=== PATIENT | female | born 1995 | race American Indian/Alaskan Native ===

== ENCOUNTER 2018-01-09 13:38 | Inpatient (IN) | payer MEDICAID ==
[2018-01-09] MEDS: LACTATED RINGERS 1,000 ML IV SCH ×2 (14:00→15:11)
[2018-01-09] MEDS ORDERED: LACTATED RINGERS 1,000 ML ONE (14:03)
[2018-01-09] MEDS ORDERED: SUBLIMAZE IV PRN (14:19)
--- NOTE | 2018-01-09 14:27 | History and Physical Report ---
History of Present Illness Date of examination: 01/09/18 Date of admission: 01/09/18 13:52 Chief complaint: contractions History of present illness: This is a 22 yo at 39+1 weeks came via ambulance and noted to be 7/100/-1 bulging bag. She states that she has care at [facility]. She is a walk in. Past History Past Medical History: asthma Past Surgical History: no surgical history Family/Genetic History: none Social history: no significant social history, single. denies: smoking, alcohol abuse, prescription drug abuse - Obstetrical History : 2 Para: 1 Hx # Term Pregnancies: 0 Number of Pregnancies: 0 Spontaneous Abortions: 0 Induced : 0 Number of Living Children: 1 Medications and Allergies Allergies Allergy/AdvReac Type Severity Reaction Status Date / Time No Known Allergies Allergy Unverified 01/09/18 13:45 Active Meds: Active Medications Fentanyl (Sublimaze) 100 mcg IV Q2H PRN PRN Reason: Labor Pain Oxytocin/Sodium Chloride (Pitocin/Ns 20 Unit/1000ml Drip) 20 units in 1,000 mls @ 250 mls/hr IV DIRECT TRINI Review of Systems All systems: negative Genitourinary: contractions - Vital Signs Vital signs: Vital Signs Pulse Pulse Ox 32 L 82 L 01/09/18 14:07 01/09/18 14:07 Temp Pulse Resp BP Pulse Ox 116 H 98 01/09/18 14:11 01/09/18 14:11 - Physical Exam Breasts: Positive: normal Cardiovascular: Regular rate, Normal S1 Lungs: Positive: Clear to auscultation, Normal air movement Abdomen: Positive: normal appearance, soft, normal bowel sounds. Negative: distention, tenderness, guarding Genitourinary (Female): Positive: normal external genitalia, normal perenium Vulva: both: normal Vagina: Positive: normal moisture Adnexa: both: normal Anus/Rectum: Positive: normal perianal skin Extremities: Positive: normal Deep Tendon Reflex Grade: Normal +2 - Obstetrical FHR: category 1 Uterine Contraction Monitor Mode: Palpation Cervical Dilatation: 7 Cervical Effacement Percentage: 100 station: -1 Uterine Contraction Pattern: Regular Uterine Tone Measurement Phase: Contraction Uterine Contraction Intensity: Strong/Firm Results All other labs normal. Assessment and Plan A/P IUP 39 + 1 weeks Term walk in No available will draw all labs GBS unknown will add ampiciliin IV pain meds until epidural can be given expect vaginal delivery
[2018-01-09 15:18] LABS: Hematocrit 33.1 % (30.3-42.9); Hemoglobin 10.7 gm/dl (10.1-14.3); Mean Corpuscular HGB Conc 32 % (30-34); Mean Corpuscular Hemoglobin 25 pg (28-32); Mean Corpuscular Volume 77 fl (79-97); Platelet Count 216 K/mm3 (140-440); Red Blood Count 4.28 M/mm3 (3.65-5.03); Red Cell Distribution Width 18.5 % (13.2-15.2)
[2018-01-09] MEDS ORDERED: ePHEDrine SULFATE ONE (15:44)
[2018-01-09 15:53] LABS: Rubella IgG Antibody Immune (Immune)
[2018-01-09] MEDS ORDERED: POLYCILLIN/NS 2 GM/100 ML 2 GM/100 ML BAG IV ONE (16:00)
[2018-01-09] MEDS ORDERED: NARCAN 2 MG/2 ML IV PRN (16:09)
[2018-01-09] MEDS ORDERED: ePHEDrine SULFATE IV PRN (16:09)
--- NOTE | 2018-01-09 16:11 | Anesthesia Consultation ---
Anesthesia Consult and Med Hx Date of service: 01/09/18 - Airway Anesthetic Teeth Evaluation: Good, Partials Mental/Hyoid Distance: Adequate Mallampati Class: Class II Intubation Access Assessment: Good - Pulmonary Exam CTA: Yes - Cardiac Exam Cardiac Exam: RRR - Pre-Operative Health Status ASA Pre-Surgery Classification: ASA2 Proposed Anesthetic Plan: Epidural - Pulmonary Hx Asthma: Yes COPD: No Hx Pneumonia: No - Endocrine Hx End Stage Renal Disease: No
[2018-01-09 16:22] LABS: Hepatitis C Virus Antibody Non-Reactive (NonReactive)
[2018-01-09 16:53] LABS: Amphetamine Screen,Urine PRESUMPTIVE NEGATIVE; Benzodiazepines Screen,Urine PRESUMPTIVE NEGATIVE; Cannabinoid Screen,Urine PRESUMPTIVE NEGATIVE; Cocaine Screen,Urine PRESUMPTIVE NEGATIVE; Methadone Screen,Urine PRESUMPTIVE NEGATIVE; Opiate Screen,Urine PRESUMPTIVE NEGATIVE
[2018-01-09] MEDS ORDERED: fentaNYL-BUPIV 2 MCG/ML-0.125% 200 MCG/100 ML BAG EPIDURAL SCH (17:00)
[2018-01-09] MEDS: PITOCin/NS 20 UNIT/1000ML DRIP 20 UNITS/1,000 ML BAG IV SCH ×2 (17:45→19:12)
[2018-01-09] MEDS ORDERED: LANSINOH TP PRN (18:02)
[2018-01-09] MEDS ORDERED: NORCO 5/325 PO PRN (18:02)
[2018-01-09] MEDS ORDERED: TYLENOL PO PRN (18:02)
[2018-01-09] MEDS ORDERED: ZOFRAN IV PRN (18:02)
[2018-01-09] MEDS ORDERED: PHENERGAN PR PRN (18:02)
[2018-01-09] MEDS ORDERED: PHENERGAN PO PRN (18:02)
[2018-01-09] MEDS ORDERED: TUCKS PAD TP PRN (18:02)
[2018-01-09] MEDS ORDERED: BENADRYL PO PRN (18:02)
[2018-01-09] MEDS ORDERED: TORADOL IV PRN (18:02)
--- NOTE | 2018-01-09 18:10 | Procedure Note ---
OB Delivery Note - Delivery Date of Delivery: 01/09/18 Surgeon: PAVEL LEBLANC Estimated blood loss: other (400cc) - Vaginal Delivery position: OA Intrapartum events: none Delivery induction: none Delivery augmentation: rupture of membranes Delivery monitor: external FHT, external uterine Route of delivery: Delivery placenta: spontaneous Delivery cord: 3 umbilical vessels Episiotomy: none Delivery laceration: 2nd degree Delivery repair: vicryl Anesthesia: epidural Delivery comments: Patient was noted to c/c+1 and commenced to pushing a viable male infant OA at 1742. The shoulders delivered easily. The nasopharynx and orophayrnx suctioned. Apgars noted to be 8 and 9. The weight of the male infant 7 pounds and 1 ounces. The cord was clamped and cut. The placenta delivered intact with 3 vessel cord. a 2nd degree laceration noted and repaired with 2-0 and 3-0 vicryl in normal fashion. sponge and needles correct x2. patient tolerated procedure well. - A at 1 minute: 8 at 5 minutes: 9 Infant Gender: Male
[2018-01-09] MEDS: MOTRIN PO SCH (19:00)
[2018-01-09] MEDS ORDERED: SODIUM CHLORIDE FLUSH SYRINGE 10 ML IV NR (19:00)
[2018-01-09] MEDS ORDERED: PITOCin/NS 20 UNIT/1000ML DRIP 20 UNITS/1,000 ML BAG IV SCH (19:00)
[2018-01-09 21:15] LABS: Hematocrit 31.8 % (30.3-42.9); Hemoglobin 9.9 gm/dl (10.1-14.3); Mean Corpuscular HGB Conc 31 % (30-34); Mean Corpuscular Volume 78 fl (79-97); Platelet Count 202 K/mm3 (140-440); Red Blood Count 4.08 M/mm3 (3.65-5.03)
[2018-01-09 21:16] LABS: Mean Corpuscular Hemoglobin 24 pg (28-32)
[2018-01-09] MEDS ORDERED: DULCOLAX PR PRN (22:00)
[2018-01-09] MEDS ORDERED: MILK OF MAGNESIA PO PRN (22:00)
[2018-01-09] MEDS: PERCOCET 5/325 PO PRN (23:00)
[2018-01-09] MEDS: COLACE PO SCH (23:00)
[2018-01-10] MEDS ORDERED: M-M-R II VACCINE SUB-Q ONE (06:00)
[2018-01-10 06:06] LABS: Hematocrit 27.7 % (30.3-42.9); Hemoglobin 8.6 gm/dl (10.1-14.3)
[2018-01-10] MEDS: MOTRIN PO SCH ×3 (06:13→22:34)
[2018-01-10] MEDS ORDERED: BOOSTRIX IM ONE (08:00)
--- NOTE | 2018-01-10 09:19 | Progress Note ---
Assessment and Plan A/P PPD#1 s/p doing well vss anemia -iron initated continue routine PP orders rh + no rhogam indicated D/c home tomorrow Subjective - Subjective Date of service: 01/10/18 Principal diagnosis: s/p Interval history: This is a 22 yo at 39+1 weeks came via ambulance and noted to be 7/100/-1 bulging bag. She states that she has care at [facility]. She is a walk in. Patient reports: appetite normal, voiding normally, pain well controlled, flatus , ambulating normally : doing well, nursing well Objective - Vital Signs Latest vital signs: Vital Signs Temp Pulse Resp BP BP Pulse Ox 01/10/18 04:48 98.5 F 87 20 110/50 01/10/18 00:04 99 F 103 H 18 120/54 01/09/18 21:15 98.4 F 79 18 117/63 01/09/18 19:23 92 H 100 01/09/18 19:18 92 H 100 01/09/18 19:17 91 H 135/60 01/09/18 19:13 84 100 01/09/18 19:08 84 100 01/09/18 19:03 100 H 168/68 100 01/09/18 19:00 98.1 F 16 01/09/18 18:58 82 100 01/09/18 18:53 87 100 01/09/18 18:48 109 H 125/69 99 01/09/18 18:34 97 H 100 01/09/18 18:29 88 99 01/09/18 18:27 82 115/67 01/09/18 18:24 100 H 100 01/09/18 18:19 131 H 100 01/09/18 18:00 98.9 F 16 01/09/18 17:57 118 H 138/60 01/09/18 17:43 103 H 138/65 01/09/18 17:34 101 H 92 01/09/18 17:29 84 83 L 01/09/18 17:28 98 H 116/58 89 01/09/18 17:24 87 100 01/09/18 17:19 90 100 01/09/18 17:14 97 H 100 01/09/18 17:13 92 H 117/60 01/09/18 17:09 100 H 100 01/09/18 17:04 107 H 114/54 100 01/09/18 16:52 113 H 100 01/09/18 16:47 112 H 100 01/09/18 16:45 118 H 121/57 01/09/18 16:42 117 H 100 01/09/18 16:37 118 H 100 01/09/18 16:32 103 H 100 01/09/18 16:27 100 H 96/58 100 01/09/18 16:25 114 H 89/54 01/09/18 16:23 96 H 103/56 01/09/18 16:22 110 H 100 01/09/18 16:21 109 H 100/52 01/09/18 16:19 106 H 118/57 01/09/18 16:17 110 H 117/59 100 01/09/18 16:16 98.0 F 16 01/09/18 16:15 110 H 109/51 01/09/18 16:13 111 H 97/56 01/09/18 16:12 114 H 100 01/09/18 16:11 117 H 106/55 01/09/18 16:09 110 H 101/53 01/09/18 16:07 105 H 107/54 100 01/09/18 16:05 109 H 115/53 01/09/18 16:03 112 H 116/70 01/09/18 16:02 109 H 100 01/09/18 16:01 108 H 106/59 01/09/18 15:59 111 H 111/59 01/09/18 15:57 111 H 97 01/09/18 15:55 98 H 164/65 01/09/18 15:53 72 140/66 01/09/18 15:52 95 01/09/18 15:44 100 H 123/81 01/09/18 14:49 95 H 89 01/09/18 14:47 96 H 99 01/09/18 14:42 98 H 94 01/09/18 14:38 99.2 F 18 01/09/18 14:37 83 100 01/09/18 14:11 116 H 98 01/09/18 14:07 32 L 82 L Intake and Output 01/09/18 01/10/18 01/10/18 23:59 07:59 15:59 Intake Total 702.5 240 Output Total 1050 1350 Balance -347.5 -1110 Intake: IV 462.5 PITOCin/NS 20 UNIT/1000ML 362.5 DRIP 20 units In 1,000 ml @ 250 mls/hr IV DIRECT TRINI Rx#:[id number] POLYCILLIN/NS 2 GM/100 ML 100 2 gm In 100 ml @ 100 mls /hr IV ONCE ONE Rx#: [id number] Intake, Free Water 240 240 Output: Urine 1050 1350 Indwelling Catheter 450 Void 600 1350 Other: Total, Output Amount 600 650 # Voids Void 1 Estimated Blood Loss 400 - Exam Breasts: Present: deferred Cardiovascular: Present: Regular rate, Normal S1 Lungs: Present: Clear to auscultation, Normal air movement Abdomen: Present: normal appearance, soft, normal bowel sounds. Absent: distention, tenderness, guarding Vulva: both: normal Uterus: Present: normal, firm, fundal height below umbilicus. Absent: bogginess , tenderness Extremities: Present: normal Deep Tendon Reflex Grade: Normal +2 - Labs Labs: Abnormal lab results 01/09/18 01/09/18 01/10/18 Range/Units 14:57 20:38 05:45 WBC 11.1 H 19.0 H (4.5-11.0) K/mm3 Hgb 9.9 L 8.6 L (10.1-14.3) gm/dl Hct 27.7 L (30.3-42.9) % MCV 77 L 78 L (79-97) fl MCH 25 L 24 L (28-32) pg RDW 18.5 H 19.0 H (13.2-15.2) %
--- NOTE | 2018-01-10 09:24 | Discharge Summary ---
Providers - Providers Date of Admission: 01/09/18 13:52 Date of discharge: 01/11/18 Attending physician: PAVEL LEBLANC MD Primary care physician: PAVEL LEBLANC MD Hospitalization Reason for admission: active labor Delivery: Episiotomy: none Laceration: 2nd degree Incision: normal, dry, intact Other procedures: none complications: none Discharge diagnosis: IUP at term delivered baby: male Condition at discharge: Good Disposition: DC-01 TO HOME OR SELFCARE Plan - Discharge Medications Prescriptions: Docusate Sodium [Colace] 100 mg PO BID PRN #60 capsule PRN Reason: Constipation Ferrous Sulfate 325 mg PO BID #60 tablet. Ibuprofen [Motrin] 600 mg PO Q8H PRN #30 tablet PRN Reason: Pain - Provider Discharge Summary Activity: routine, no sex for 6 weeks, no strenuous exercise Diet: routine Instructions: routine Additional instructions: [] Smoking cessation referral if applicable(refer to patient education folder for contact #) [] Refer to [facility]'s [facility] Booklet Call your doctor immediately for: * Fever > 100.5 * Heavy vaginal bleeding ( >1 pad per hour) * Severe persistent headache * Shortness of breath * Reddened, hot, painful area to leg or breast * Drainage or odor from incision. * Keep incision clean and dry at all times and follow doctor's instructions regarding bathing/showering - Follow up plan Follow up: PAVEL LEBLANC MD [Primary Care Provider] - 02/05/18
[2018-01-10] MEDS: PRENATAL VITAMIN PO SCH (12:18)
[2018-01-10] MEDS: COLACE PO SCH ×2 (12:18→22:34)
[2018-01-10] MEDS: PERCOCET 5/325 PO PRN (12:22)
[2018-01-11] MEDS: MOTRIN PO SCH ×2 (02:59→05:50)
[2018-01-11] MEDS: PRENATAL VITAMIN PO SCH (08:36)
[2018-01-11] MEDS: COLACE PO SCH (08:37)
[2018-01-11 18:43] VITALS: BP 113/63
== END 2018-01-11 19:38 | disposition home or self-care (01) | DRG 775 ==
LOC: TRG 13:38 → EDBD 13:52 → LD 13:52 → OB 20:58
PROVIDERS: ADMIT Obstetrics & Gynecology; ATTEND Obstetrics & Gynecology
PROC: 0KQM0ZZ Repair Perineum Muscle, Open Approach (ICD-10-PCS; principal; 2018-01-09)
PROC: 10E0XZZ Delivery of Products of Conception, External Approach (ICD-10-PCS; 2018-01-09)
PROC: 3E0R3BZ Introduction of Anesthetic Agent into Spinal Canal, Percutaneous Approach (ICD-10-PCS; 2018-01-09)
PROC: 00HU33Z Insertion of Infusion Device into Spinal Canal, Percutaneous Approach (ICD-10-PCS; 2018-01-09)
PROC: 3E0234Z Introduction of Serum, Toxoid and Vaccine into Muscle, Percutaneous Approach (ICD-10-PCS; 2018-01-10)
DX: O99.52 Diseases of the respiratory system complicating childbirth (principal); O70.1 Second degree perineal laceration during delivery; Z3A.39 39 weeks gestation of pregnancy; Z37.0 Single live birth; J45.909 Unspecified asthma, uncomplicated; O90.81 Anemia of the puerperium; D64.9 Anemia, unspecified; Z23 Encounter for immunization
CPT/HCPCS: 36415; 80307; 85014; 85018; 85027; 86592; 86706; 86762; 86803; 86850; 86900; 86901; 87806; J0290; J2590; J3010; J7120

== ENCOUNTER 2019-11-01 19:39 | Emergency (ER) | payer MEDICAID, OTHER ==
[2019-11-01] MEDS ORDERED: IBUPROFEN 600 MG TAB PO ONE ×2 (23:06→23:08)
[2019-11-02 00:07] LABS: Bacteria,Urine 2+ /HPF (Negative); Bilirubin,Urine NEG (Negative); Blood,Urine MOD (Negative); Color,Urine Yellow (Yellow); Mucus,Urine FEW /HPF; Protein,Urine <15 mg/dL mg/dL (Negative); Urobilinogen,Urine < 2.0 mg/dL (<2.0)
[2019-11-02 00:15] LABS: Hematocrit 38.2 % (30.3-42.9); Hemoglobin 13.2 gm/dl (10.1-14.3); Mean Corpuscular HGB Conc 34 % (30-34); Mean Corpuscular Volume 91 fl (79-97); Platelet Count 257 K/mm3 (140-440); Red Cell Distribution Width 13.4 % (13.2-15.2)
[2019-11-02 00:35] LABS: BUN/Creatinine Ratio 7; Blood Urea Nitrogen 5 mg/dL (7-17); Calcium 9.3 mg/dL (8.4-10.2); Hemolysis Index 29
[2019-11-02] MEDS ORDERED: KETOROLAC 30 MG/1 ML INJ IV ONE (01:32)
[2019-11-02] MEDS ORDERED: cefTRIAXone/NS 1 GM/50 ML 1 GM/50 ML BAG IV ONE (01:32)
[2019-11-02] MEDS ORDERED: SODIUM CHLORIDE 0.9% 1000 ML 1,000 ML IV ONE (01:32)
[2019-11-02] MEDS ORDERED: METOCLOPRAMIDE 10 MG/2 ML INJ IV ONE (01:32)
[2019-11-02] MEDS ORDERED: BUTALB/ACETAMINOPHEN/CAFFEINE TAB PO ONE (01:32)
[2019-11-02] MEDS ORDERED: ONDANSETRON 4 MG/2 ML INJ IV ONE (01:40)
--- NOTE | 2019-11-02 03:08 | Emergency Department Report ---
ED General Adult HPI - General Chief complaint: Headache Stated complaint: MIGRAINE/FATIGUE/ LT SIDE PAIN Source: patient Mode of arrival: Ambulatory Limitations: No Limitations - History of Present Illness Initial comments: Patient is a A0 24-year-old Afro-British female with no past medical history presents to the ED with complaint of acute onset persistent diffuse lower abdominal pain worse in the right, weight persistent right fronto-temporal headache with nausea and photophobia for the last 4 days. Patient denies dizziness, nasal and sinus congestion, sore throat, fever, chills, cough, chest pain, shortness of breath, diarrhea, dysuria, urinary frequency and urgency, vaginal bleeding or vaginal discharge, traumatic injury or heavy lifting. Patient states that she had been taking [id number] pain medications with no relief. MD Complaint: Lower back pain; headache; body aches and apins -: Sudden, days(s) (4) Location: head, back Radiation: back Severity scale (0 -10): 7 Quality: aching, sharp Consistency: constant Improves with: none Worsens with: none Associated Symptoms: denies other symptoms, headaches, loss of appetite, malaise, nausea/vomiting. denies: confusion, chest pain, cough, diaphoresis, fever/chills, rash, seizure, shortness of breath, syncope, weakness, other Treatments Prior to Arrival: NSAID - Related Data Home Medications Medication Instructions Recorded Confirmed Last Taken Docusate Sodium [Colace] 100 mg PO QDAY PRN 01/09/18 01/09/18 2 Days Ago ~01/07/18 Ferrous Sulfate [Iron] 325 mg PO QDAY 01/09/18 01/09/18 2 Days Ago ~01/07/18 Pnv No.95/Ferrous Fum/Folic AC 1 tab PO QDAY 01/09/18 01/09/18 3 Days Ago [ Formula Tablet] ~01/06/18 Previous Rx's Medication Instructions Recorded Last Taken Type Docusate Sodium [Colace] 100 mg PO BID PRN #60 capsule 01/09/18 Unknown Rx Ferrous Sulfate 325 mg PO BID #60 tablet. 01/09/18 Unknown Rx Butalb/Acetamin/Caff 50-325-40 1 tab PO Q6HR PRN #12 tab 11/02/19 Unknown Rx [Fioricet 50-325-40] Cyclobenzaprine [Flexeril] 10 mg PO Q8H PRN #15 tablet 11/02/19 Unknown Rx Ibuprofen [Motrin 600 MG tab] 600 mg PO Q8H PRN #30 tablet 11/02/19 Unknown Rx Promethazine [Phenergan] 25 mg PO Q6HR PRN #24 tab 11/02/19 Unknown Rx cephALEXin [Keflex] 500 mg PO Q6HR #40 capsule 11/02/19 Unknown Rx Allergies Allergy/AdvReac Type Severity Reaction Status Date / Time No Known Allergies Allergy Verified 11/01/19 19:43 ED Review of Systems ROS: Stated complaint: MIGRAINE/FATIGUE/ LT SIDE PAIN Other details as noted in HPI Constitutional: denies: chills, fever Eyes: denies: eye pain, eye discharge, vision change ENT: denies: ear pain, throat pain Respiratory: denies: cough, shortness of breath, wheezing Cardiovascular: denies: chest pain, palpitations Endocrine: no symptoms reported Gastrointestinal: nausea. denies: abdominal pain, vomiting, diarrhea, constipation, hematemesis Genitourinary: denies: urgency, dysuria, frequency, discharge Musculoskeletal: back pain, arthralgia, myalgia. denies: joint swelling Skin: denies: rash, lesions Neurological: headache. denies: weakness, paresthesias Psychiatric: denies: anxiety, depression Hematological/Lymphatic: denies: easy bleeding, easy bruising ED Past Medical Hx - Past Medical History Previous Medical History?: Yes Hx Congestive Heart Failure: No Hx Diabetes: No Hx Asthma: Yes Hx COPD: No - Social History Smoking Status: Never Smoker Substance Use Type: None - Medications Home Medications: Home Medications Medication Instructions Recorded Confirmed Last Taken Type Docusate Sodium [Colace] 100 mg PO BID PRN #60 capsule 01/09/18 Unknown Rx Docusate Sodium [Colace] 100 mg PO QDAY PRN 01/09/18 01/09/18 2 Days Ago History ~01/07/18 Ferrous Sulfate 325 mg PO BID #60 tablet. 01/09/18 Unknown Rx Ferrous Sulfate [Iron] 325 mg PO QDAY 01/09/18 01/09/18 2 Days Ago History ~01/07/18 Pnv No.95/Ferrous Fum/Folic AC 1 tab PO QDAY 01/09/18 01/09/18 3 Days Ago History [ Formula Tablet] ~01/06/18 Butalb/Acetamin/Caff 50-325-40 1 tab PO Q6HR PRN #12 tab 11/02/19 Unknown Rx [Fioricet 50-325-40] Cyclobenzaprine [Flexeril] 10 mg PO Q8H PRN #15 tablet 11/02/19 Unknown Rx Ibuprofen [Motrin 600 MG tab] 600 mg PO Q8H PRN #30 tablet 11/02/19 Unknown Rx Promethazine [Phenergan] 25 mg PO Q6HR PRN #24 tab 11/02/19 Unknown Rx cephALEXin [Keflex] 500 mg PO Q6HR #40 capsule 11/02/19 Unknown Rx ED Physical Exam - General Limitations: No Limitations General appearance: alert, in no apparent distress - Head Head exam: Present: atraumatic, normocephalic, normal inspection - Eye Eye exam: Present: normal appearance, PERRL, EOMI Pupils: Present: normal accommodation - ENT ENT exam: Present: normal exam, normal orophraynx, mucous membranes moist, TM's normal bilaterally, normal external ear exam - Neck Neck exam: Present: normal inspection, full ROM - Respiratory Respiratory exam: Present: normal lung sounds bilaterally. Absent: respiratory distress, wheezes, decreased breath sounds, prolonged expiratory - Cardiovascular Cardiovascular Exam: Present: regular rate, normal rhythm, tachycardia, normal heart sounds. Absent: systolic murmur, diastolic murmur, rubs, gallop - GI/Abdominal GI/Abdominal exam: Present: soft, normal bowel sounds. Absent: tenderness, guarding, rebound, hyperactive bowel sounds, hypoactive bowel sounds, organomegaly - Extremities Exam Extremities exam: Present: normal inspection, full ROM, normal capillary refill - Back Exam Back exam: Present: normal inspection, full ROM, tenderness (palpable l umbosacral paraspinal musculoskeletal tenderness), CVA tenderness (R), muscle spasm, paraspinal tenderness - Neurological Exam Neurological exam: Present: alert, oriented X3, CN II-XII intact, normal gait, reflexes normal - Psychiatric Psychiatric exam: Present: normal affect, normal mood - Skin Skin exam: Present: warm, dry, intact, normal color. Absent: rash ED Course Vital Signs 11/01/19 11/01/19 11/01/19 20:29 23:01 23:10 Temperature 100.2 F H 100.2 F H 101.7 F H Pulse Rate 130 H 127 H Respiratory 16 18 20 Rate Blood Pressure 109/51 109/51 O2 Sat by Pulse 100 100 Oximetry ED Medical Decision Making - Lab Data Result diagrams: 11/01/19 23:22 11/01/19 23:22 - Medical Decision Making This is a 24-year-old female who presented to the ED with Rodriguez of acute onset persistent diffuse body aches and pains, worse in the lower back with right frontal temporal headache, photophobia with nausea. In the ED, patient is alert and oriented 3 and is not in distress. Patient is tachycardic and febrile triage. Lab test results were reviewed and are all nonactionable except for urinalysis showed significant urinary tract infection. Patient was treated for pain, also received normal saline 1 L IV bolus and Rocephin 1 g IV 1. On reevaluation, patient's pain and headache resolved with treatment. Patient was discharged home on pain medications and antibiotics for UTI, and was advised to follow-up with her primary care physician or DOCTOR OF PHARMACY physician in 7-10 days for reevaluation or return to the ED immediately if symptoms get worse. - Differential Diagnosis Pyelonephritis; UTI; Flu; Bronchitis; sinusitis; URI Critical care attestation.: If time is entered above; I have spent that time in minutes in the direct care of this critically ill patient, excluding procedure time. ED Disposition Clinical Impression: Acute urinary tract infection, Flu-like symptoms, Fever and chills Acute frontal sinusitis Qualifiers: Recurrence: non-recurrent Qualified Code(s): J01.10 - Acute frontal sinusitis, unspecified Disposition: - TO HOME OR SELFCARE Is pt being admited?: No Does the pt Need Aspirin: No Condition: Stable Instructions: Fever in Adults (ED), Influenza (ED), Urinary Tract Infection in Women (ED), Muscle Spasm (ED), Acute Bacterial Rhinosinusitis (ED) Additional Instructions: Take medications with food, drink plenty of fluids and follow-up with your primary care physician in 5-7 days for reevaluation. Return to the ED immediately if symptoms get worse. Prescriptions: Butalb/Acetamin/Caff 50-325-40 [Fioricet 50-325-40] 1 tab PO Q6HR PRN #12 tab PRN Reason: Headache Cyclobenzaprine [Flexeril] 10 mg PO Q8H PRN #15 tablet PRN Reason: Muscle Spasm cephALEXin [Keflex] 500 mg PO Q6HR #40 capsule Ibuprofen [Motrin 600 MG tab] 600 mg PO Q8H PRN #30 tablet PRN Reason: Pain Promethazine [Phenergan] 25 mg PO Q6HR PRN #24 tab PRN Reason: Nausea Referrals: MASON DE LA ROSA MD [Staff Physician] - 3-5 Days Forms: Work/School Release Form(ED) Time of Disposition: 03:13 Print Language: [place]
[2019-11-02 03:17] VITALS: BP 97/60
== END 2019-11-02 03:55 | disposition home or self-care (01) ==
LOC: ED 19:39
DX: N39.0 Urinary tract infection, site not specified (principal); J01.10 Acute frontal sinusitis, unspecified; J45.909 Unspecified asthma, uncomplicated; Z79.899 Other long term (current) drug therapy
CPT/HCPCS: 36415; 80048; 81001; 84703; 85027; 87086; 96365; 96375; 99283; J0696; J1885; J2405; J7030; 87076; 87186

== ENCOUNTER 2020-12-08 08:47 | Emergency (ER) | payer OTHER ==
[2020-12-08] MEDS ORDERED: ACETAMINOPHEN 500 MG TAB PO ONE (08:55)
[2020-12-08] MEDS ORDERED: ONDANSETRON 4 MG ODT TAB PO ONE (08:55)
--- NOTE | 2020-12-08 08:56 | Emergency Department Report ---
ED Abdominal Pain HPI - General Stated Complaint: lower abd pain Time Seen by Provider: 12/08/20 08:54 Source: patient Mode of arrival: Ambulatory Limitations: No Limitations - History of Present Illness Initial Comments: 25-year-old female presents to the ER today with complaints of lower abdominal pain. Patient states that symptoms started about 2 days ago. She describes as an intermittent achy pain with associated lower back pain and intermittent nausea. She reports urinary frequency but no other UTI symptoms. She denies any abnormal vaginal bleeding or vaginal discharge. She does admit to new recent sexual partner and unprotected sexual intercourse. She denies any bowel changes. She denies any fever, chills or any other symptoms at this time. Her last menstrual cycle was November 27, 2020. She is now on control. MD Complaint: abdominal pain -: Gradual, days(s) (2) Location: LLQ, RLQ, suprapubic Radiation: none Severity: moderate Quality: aching Consistency: intermittent Improves With: nothing Worsens With: nothing Associated Symptoms: nausea - Related Data LMP Date: 11/27/20 Previous Rx's Medication Instructions Recorded Last Taken Type Fluconazole (Nf) [Diflucan TAB] 150 mg PO ONCE #1 tablet 12/08/20 Unknown Rx Ibuprofen [Motrin] 600 mg PO Q8H PRN #30 tablet 12/08/20 Unknown Rx Sulfamethoxazole/Trimethoprim 1 each PO BID #14 tablet 12/08/20 Unknown Rx [Bactrim DS TAB] Allergies Allergy/AdvReac Type Severity Reaction Status Date / Time No Known Allergies Allergy Verified 11/01/19 19:43 ED Review of Systems ROS: Stated complaint: lower abd pain Other details as noted in HPI Comment: All other systems reviewed and negative Gastrointestinal: abdominal pain, nausea Genitourinary: frequency Musculoskeletal: back pain ED Past Medical Hx - Past Medical History Hx Congestive Heart Failure: No Hx Diabetes: No Hx Asthma: Yes Hx COPD: No - Social History Smoking Status: Never Smoker Substance Use Type: None - Medications Home Medications: Home Medications Medication Instructions Recorded Confirmed Last Taken Type Fluconazole (Nf) [Diflucan TAB] 150 mg PO ONCE #1 tablet 12/08/20 Unknown Rx Ibuprofen [Motrin] 600 mg PO Q8H PRN #30 tablet 12/08/20 Unknown Rx Sulfamethoxazole/Trimethoprim 1 each PO BID #14 tablet 12/08/20 Unknown Rx [Bactrim DS TAB] ED Physical Exam - General General appearance: alert, in no apparent distress - Head Head exam: Present: atraumatic, normocephalic, normal inspection - Respiratory Respiratory exam: Present: normal lung sounds bilaterally. Absent: respiratory distress - Cardiovascular Cardiovascular Exam: Present: regular rate, normal rhythm, normal heart sounds - GI/Abdominal GI/Abdominal exam: Present: soft, tenderness (Mild suprapubic abdominal tenderness). Absent: distended, guarding, rebound - Back Exam Back exam: Present: normal inspection, full ROM - Neurological Exam Neurological exam: Present: alert, oriented X3, CN II-XII intact, normal gait - Psychiatric Psychiatric exam: Present: normal affect, normal mood - Skin Skin exam: Present: intact ED Course Vital Signs 12/08/20 12/08/20 08:52 09:30 Temperature 98.3 F Pulse Rate 100 H Respiratory 18 16 Rate Blood Pressure 129/78 O2 Sat by Pulse 100 Oximetry ED Medical Decision Making - Medical Decision Making 25-year-old female presents to the ER today with complaints of lower abdominal pain. Patient states that symptoms started about 2 days ago. She describes as an intermittent achy pain with associated lower back pain and intermittent nausea. She reports urinary frequency but no other UTI symptoms. She denies any abnormal vaginal bleeding or vaginal discharge. She does admit to new recent sexual partner and unprotected sexual intercourse. She denies any bowel changes. She denies any fever, chills or any other symptoms at this time. Her last menstrual cycle was November 27, 2020. She is now on control. 0953: Urinalysis reviewed, test is negative, urine is concerning for possible UTI, culture is pending, urine also indicates a yeast infection. Offered to do a pelvic exam on the patient but she refused at this time, she states that she has an appointment with her MANUFACTURING QUALITY INSPECTOR next 2 weeks and will follow up to get her pelvic exam done. Patient is well-appearing, nontoxic, and not in any acute distress. She has a nonsurgical abdominal exam. She appears well- hydrated and she is neurologically intact. Discussed urinalysis results, treatment plan and importance of follow-up with MANUFACTURING QUALITY INSPECTOR in 2 weeks. Patient exp ressed understanding of instructions and agree with plan. Patient stable at time of discharge. Critical care attestation.: If time is entered above; I have spent that time in minutes in the direct care of this critically ill patient, excluding procedure time. ED Disposition Clinical Impression: UTI (urinary tract infection), Yeast vaginitis, Pelvic pain Disposition: TO HOME OR SELFCARE Is pt being admited?: No Does the pt Need Aspirin: No Condition: Stable Instructions: Pelvic Pain, Female, [id number], Vaginal Yeast Infection, Adult, Urinary Tract Infection, Adult, [id number] Additional Instructions: Take the Diflucan as discussed. Take Bactrim as instructed. Drink lots of water. Follow-up with the MANUFACTURING QUALITY INSPECTOR as scheduled next week. Return to the ER if your symptoms changes or worsens in any way. Prescriptions: Sulfamethoxazole/Trimethoprim [Bactrim DS TAB] 1 each PO BID #14 tablet Fluconazole (Nf) [Diflucan TAB] 150 mg PO ONCE #1 tablet Ibuprofen [Motrin] 600 mg PO Q8H PRN #30 tablet PRN Reason: Pain Referrals: PRIMARY CARE, [Primary Care Provider] - 3-5 Days Forms: Work/School Release Form(ED) Time of Disposition: 09:56
[2020-12-08 09:10] VITALS: BP 129/78
[2020-12-08 09:42] LABS: Bacteria,Urine 2+ /HPF (Negative); Bilirubin,Urine NEG (Negative); Blood,Urine NEG (Negative); Color,Urine Yellow (Yellow); Protein,Urine <15 mg/dL mg/dL (Negative)
[2020-12-08 09:44] LABS: HCG Qualitative,Urine Negative (Negative)
== END 2020-12-08 10:11 | disposition home or self-care (01) ==
LOC: ED 08:47
DX: N39.0 Urinary tract infection, site not specified (principal); B37.9 Candidiasis, unspecified; R10.2 Pelvic and perineal pain; J45.909 Unspecified asthma, uncomplicated; Z79.1 Long term (current) use of non-steroidal anti-inflammatories (NSAID); Z79.899 Other long term (current) drug therapy
CPT/HCPCS: 81001; 81025; 87076; 87086; 87186; Q0162

== ENCOUNTER 2021-03-15 08:58 | Emergency (ER) | payer OTHER ==
[2021-03-15 09:11] VITALS: BP 112/64
[2021-03-15] MEDS ORDERED: IPRATROPIUM/ALBUTEROL SULFATE 3 ML AMPUL.NEB IH ONE (10:30)
[2021-03-15] MEDS ORDERED: predniSONE 20 MG TAB PO ONE (10:30)
--- NOTE | 2021-03-15 11:09 | Emergency Department Report ---
- General Chief Complaint: Upper Respiratory Infection Stated Complaint: COUGHING/RUNNY NOSE/EAR ACHE Time Seen by Provider: 03/15/21 09:47 Source: patient Mode of arrival: Ambulatory Limitations: No Limitations - History of Present Illness Initial Comments: Patient is a 25-year-old female presents emergency room with complaints of a cough with mucus production that began 3 days ago. She has associated wheezing, rhinorrhea, congestion, sore throat, ear discomfort. She denies any fever, vomiting, diarrhea, chest pain, abdominal pain. Past medical history of asthma. No allergies to medications. Patient states that she does not have an albuterol inhaler anymore. She states that she is a non-smoker. - Related Data Previous Rx's Medication Instructions Recorded Last Taken Type Fluconazole (Nf) [Diflucan TAB] 150 mg PO ONCE #1 tablet 12/08/20 Unknown Rx Ibuprofen [Motrin] 600 mg PO Q8H PRN #30 tablet 12/08/20 Unknown Rx Sulfamethoxazole/Trimethoprim 1 each PO BID #14 tablet 12/08/20 Unknown Rx [Bactrim DS TAB] Albuterol Sulfate [Proventil Hfa] 1 puff IH TID PRN #1 hfa.aer.ad 03/15/21 Unknown Rx Benzonatate [Tessalon Perles] 100 mg PO Q8HR PRN #14 capsule 03/15/21 Unknown Rx predniSONE [Deltasone] 40 mg PO DAILY 5 Days #10 tablet 03/15/21 Unknown Rx Allergies Allergy/AdvReac Type Severity Reaction Status Date / Time No Known Allergies Allergy Verified 11/01/19 19:43 ED Review of Systems ROS: Stated complaint: COUGHING/RUNNY NOSE/EAR ACHE Other details as noted in HPI Comment: All other systems reviewed and negative ED Past Medical Hx - Past Medical History Hx Congestive Heart Failure: No Hx Diabetes: No Hx Asthma: Yes Hx COPD: No - Surgical History Additional Surgical History: NONE - Social History Smoking Status: Never Smoker - Medications Home Medications: Home Medications Medication Instructions Recorded Confirmed Last Taken Type Fluconazole (Nf) [Diflucan TAB] 150 mg PO ONCE #1 tablet 12/08/20 Unknown Rx Ibuprofen [Motrin] 600 mg PO Q8H PRN #30 tablet 12/08/20 Unknown Rx Sulfamethoxazole/Trimethoprim 1 each PO BID #14 tablet 12/08/20 Unknown Rx [Bactrim DS TAB] Albuterol Sulfate [Proventil Hfa] 1 puff IH TID PRN #1 hfa.aer.ad 03/15/21 Unknown Rx Benzonatate [Tessalon Perles] 100 mg PO Q8HR PRN #14 capsule 03/15/21 Unknown Rx predniSONE [Deltasone] 40 mg PO DAILY 5 Days #10 tablet 03/15/21 Unknown Rx ED Physical Exam - General Limitations: No Limitations General appearance: alert, in no apparent distress - Head Head exam: Present: atraumatic, normocephalic - Eye Eye exam: Present: normal appearance - ENT ENT exam: Present: normal orophraynx, mucous membranes moist, TM's normal bilaterally, normal external ear exam - Respiratory Respiratory exam: Present: wheezes (occasional mild wheeze bilaterally). Absent: respiratory distress, rales, rhonchi, stridor, chest wall tenderness, accessory muscle use, decreased breath sounds, prolonged expiratory - Cardiovascular Cardiovascular Exam: Present: regular rate, normal rhythm, normal heart sounds. Absent: systolic murmur, diastolic murmur, rubs, gallop - Neurological Exam Neurological exam: Present: alert, oriented X3 - Psychiatric Psychiatric exam: Present: normal affect, normal mood - Skin Skin exam: Present: warm, dry, intact ED Course Vital Signs 03/15/21 03/15/21 09:10 11:09 Temperature 98.8 F Pulse Rate 94 H Pulse Rate [ 99 H Anterior Bilateral Throughout] Respiratory 18 Rate Respiratory 18 Rate [Anterior Bilateral Throughout] Blood Pressure 112/64 O2 Sat by Pulse 100 Oximetry ED Medical Decision Making - Radiology Data Radiology results: report reviewed Ordering Physician: IVAN GUTIERREZ Date of Service: 03/15/21 Procedure(s): XR chest routine 2V Accession Number(s): [id number] cc: IVAN GUTIERREZ Fluoro Time In Minutes: CHEST 2 VIEWS INDICATION: cough, wheezing. COMPARISON: None FINDINGS: Support devices: None. Heart: Within normal limits. Lungs: No acute air space or interstitial disease. Pleura: No significant pleural effusion. No pneumothorax. Additional findings: None. IMPRESSION: 1. No acute findings. Signer Name: Alec Chávez MD Signed: 03/15/2021 11:04 AM Workstation Name: [id number] Transcribed By: LAMONT Dictated By: Alec Chávez MD Electronically Authenticated By: Alec Chávez MD Signed Date/Time: 03/15/211103 DD/ 03 TD/TT: Print - Medical Decision Making Patient is a 25-year-old female presents emergency room with complaints of a cough with mucus production that began 3 days ago. She has associated wheezing, rhinorrhea, congestion, sore throat, ear discomfort. She denies any fever, vomiting, diarrhea, chest pain, abdominal pain. Past medical history of asthma. No allergies to medications. Patient states that she does not have an albuterol inhaler anymore. She states that she is a non-smoker. Vitals are normal. On exam normal oropharynx, normal TMs and canals, occasional mild wheezing bilaterally, no respiratory distress, accessory muscle use, no rhonchi, no rales, no stridor. Chest x-ray: 1. No acute findings. Patient given neb treatment and oral steroids. On reexamination patient is feeling much better and wheezing has completely resolved. Symptoms likely related to viral URI which is causing mild asthma exacerbation. Patient given prescription for medications. Patient does not have any clinical signs of acute bacterial pneumonia or bacterial bronchitis at this time. advised pt Please take medication as prescribed. Increase your water intake. Follow-up with your primary care doctor for reexamination. Recommend for you to get outpatient COVID-19 testing and quarantine as necessary. Please follow your work protocol regarding viral illnesses. Return to emergency room for any new or worsening symptoms. Critical care attestation.: If time is entered above; I have spent that time in minutes in the direct care of this critically ill patient, excluding procedure time. ED Disposition Clinical Impression: URI (upper respiratory infection) Qualifiers: URI type: unspecified URI Qualified Code(s): J06.9 - Acute upper respiratory infection, unspecified Asthma Qualifiers: Asthma severity: unspecified severity Asthma persistence: unspecified Asthma complication type: with acute exacerbation Qualified Code(s): J45.901 - Unspecified asthma with (acute) exacerbation Disposition: -01 TO HOME OR SELFCARE Is pt being admited?: No Does the pt Need Aspirin: No Condition: Stable Instructions: Asthma, Adult, Viral Respiratory Infection, Asthma (ED) Additional Instructions: Please take medication as prescribed. Increase your water intake. Follow-up with your primary care doctor for reexamination. Recommend for you to get outpatient COVID-19 testing and quarantine as necessary. Please follow your work protocol regarding viral illnesses. Return to emergency room for any new or worsening symptoms. Prescriptions: predniSONE [Deltasone] 40 mg PO DAILY 5 Days #10 tablet Albuterol Sulfate [Proventil Hfa] 1 puff IH TID PRN #1 hfa.aer.ad PRN Reason: shortness of breath/wheezing Benzonatate [Tessalon Perles] 100 mg PO Q8HR PRN #14 capsule PRN Reason: cough Referrals: MASON DE LA ROSA MD [Staff Physician] - 3-5 Days [facility] [Provider Group] - 3-5 Days ANDREW MARIANO MD [Staff Physician] - 3-5 Days Forms: Work/School Release Form(ED) Time of Disposition: 11:16 Print Language: FILIPINO
== END 2021-03-15 11:39 | disposition home or self-care (01) ==
LOC: ED 08:58
DX: J45.909 Unspecified asthma, uncomplicated (principal); J06.9 Acute upper respiratory infection, unspecified; Z79.1 Long term (current) use of non-steroidal anti-inflammatories (NSAID); Z79.899 Other long term (current) drug therapy
CPT/HCPCS: 71046; 94640; 99283; J7512; 94644

== ENCOUNTER 2021-10-08 11:59 | Emergency (ER) | payer OTHER ==
--- NOTE | 2021-10-08 15:15 | Emergency Department Report ---
ED Female HPI - General Chief complaint: Abdominal Pain Stated complaint: PELVIC/LOWER BACK PAIN Time Seen by Provider: 10/08/21 14:43 Source: patient Mode of arrival: Ambulatory Limitations: No Limitations - History of Present Illness Initial comments: Patient is a 26-year-old female presents emergency room with complaints of pelvic pain that began a week and a half ago. She states that she typically feels the pain at night. She states that her cycle this month was much clerical grader than usual and she is concerned that she is . She states that she has also been feeling nauseous. She denies any dysuria, fever, vomiting, diarrhea, vaginal discharge, itching, burning. She denies any concerns for STDs. Past medical history of asthma. she denies Allergies to medications. - Related Data Previous Rx's Medication Instructions Recorded Last Taken Type Fluconazole (Nf) [Diflucan TAB] 150 mg PO ONCE #1 tablet 12/08/20 Unknown Rx Ibuprofen [Motrin] 600 mg PO Q8H PRN #30 tablet 12/08/20 Unknown Rx Sulfamethoxazole/Trimethoprim 1 each PO BID #14 tablet 12/08/20 Unknown Rx [Bactrim DS TAB] Albuterol Sulfate [Proventil Hfa] 1 puff IH TID PRN #1 hfa.aer.ad 03/15/21 Unknown Rx Benzonatate [Tessalon Perles] 100 mg PO Q8HR PRN #14 capsule 03/15/21 Unknown Rx predniSONE [Deltasone] 40 mg PO DAILY 5 Days #10 tablet 03/15/21 Unknown Rx Naproxen 375 mg PO BID PRN #20 tab 10/08/21 Unknown Rx cephALEXin [Keflex] 500 mg PO BID 7 Days #14 capsule 10/08/21 Unknown Rx Allergies Allergy/AdvReac Type Severity Reaction Status Date / Time No Known Allergies Allergy Verified 11/01/19 19:43 ED Review of Systems ROS: Stated complaint: PELVIC/LOWER BACK PAIN Other details as noted in HPI Comment: All other systems reviewed and negative ED Past Medical Hx - Past Medical History Previous Medical History?: Yes Hx Congestive Heart Failure: No Hx Diabetes: No Hx Asthma: Yes Hx COPD: No - Surgical History Past Surgical History?: Yes Additional Surgical History: NONE - Social History Smoking Status: Never Smoker - Medications Home Medications: Home Medications Medication Instructions Recorded Confirmed Last Taken Type Fluconazole (Nf) [Diflucan TAB] 150 mg PO ONCE #1 tablet 12/08/20 Unknown Rx Ibuprofen [Motrin] 600 mg PO Q8H PRN #30 tablet 12/08/20 Unknown Rx Sulfamethoxazole/Trimethoprim 1 each PO BID #14 tablet 12/08/20 Unknown Rx [Bactrim DS TAB] Albuterol Sulfate [Proventil Hfa] 1 puff IH TID PRN #1 hfa.aer.ad 03/15/21 Unknown Rx Benzonatate [Tessalon Perles] 100 mg PO Q8HR PRN #14 capsule 03/15/21 Unknown Rx predniSONE [Deltasone] 40 mg PO DAILY 5 Days #10 tablet 03/15/21 Unknown Rx Naproxen 375 mg PO BID PRN #20 tab 10/08/21 Unknown Rx cephALEXin [Keflex] 500 mg PO BID 7 Days #14 capsule 10/08/21 Unknown Rx ED Physical Exam - General Limitations: No Limitations General appearance: alert, in no apparent distress - Head Head exam: Present: atraumatic, normocephalic - Eye Eye exam: Present: normal appearance - ENT ENT exam: Present: mucous membranes moist - Respiratory Respiratory exam: Present: normal lung sounds bilaterally. Absent: respiratory distress, wheezes, rales, rhonchi, stridor, chest wall tenderness, accessory muscle use, decreased breath sounds, prolonged expiratory - Cardiovascular Cardiovascular Exam: Present: regular rate, normal rhythm, normal heart sounds. Absent: systolic murmur, diastolic murmur, rubs, gallop - GI/Abdominal GI/Abdominal exam: Present: soft, normal bowel sounds. Absent: distended, tenderness, guarding, rebound, rigid - Neurological Exam Neurological exam: Present: alert, oriented X3 - Psychiatric Psychiatric exam: Present: normal affect, normal mood - Skin Skin exam: Present: warm, dry, intact ED Course Vital Signs 10/08/21 14:30 Temperature 98 F Pulse Rate 94 H Respiratory 16 Rate Blood Pressure 125/70 [Left] O2 Sat by Pulse 96 Oximetry ED Medical Decision Making - Medical Decision Making Patient is a 26-year-old female presents emergency room with complaints of pelvic pain that began a week and a half ago. She states that she typically feels the pain at night. She states that her cycle this month was much clerical grader than usual and she is concerned that she is . She states that she has also been feeling nauseous. She denies any dysuria, fever, vomiting, diarrhea, vaginal discharge, itching, burning. She denies any concerns for STDs. Past medical history of asthma. she denies Allergies to medications. Vitals are normal. hCG quant is less than 2. UA shows evidence of UTI, there are some epithelial cells, this could be due to contamination but patient is having pelvic pain, will cover for UTI. I again asked patient if she was concerned for STDs and she stated no. pt given prescription for keflex and naproxen. advised pt please take medication as prescribed. increase fluid intake. Follow-up with a primary care doctor. Follow-up with [facility]. Return to emergency room for any new or worsening symptoms. Critical care attestation.: If time is entered above; I have spent that time in minutes in the direct care of this critically ill patient, excluding procedure time. ED Disposition Clinical Impression: Pelvic pain UTI (urinary tract infection) Qualifiers: Urinary tract infection type: acute cystitis Hematuria presence: without hematuria Qualified Code(s): N30.00 - Acute cystitis without hematuria Disposition: HOME / SELF CARE / HOMELESS Is pt being admited?: No Does the pt Need Aspirin: No Condition: Stable Instructions: Abdominal Pain (ED), Urinary Tract Infection, Adult Additional Instructions: please take medication as prescribed. increase fluid intake. Follow-up with a primary care doctor. Follow-up with [facility]. Return to emergency room for any new or worsening symptoms. Prescriptions: cephALEXin [Keflex] 500 mg PO BID 7 Days #14 capsule Naproxen 375 mg PO BID PRN #20 tab PRN Reason: pain Referrals: PRIMARY CARE [Primary Care Provider] - 3-5 Days [facility] [Provider Group] - 3-5 Days [facility] [Provider Group] - 3-5 Days Time of Disposition: 16:30 Print Language: BAHAMIAN
[2021-10-08 15:27] LABS: Bilirubin,Urine NEG (Negative); Blood,Urine NEG (Negative); Color,Urine Yellow (Yellow); Mucus,Urine FEW /HPF; Protein,Urine <15 mg/dL mg/dL (Negative); Urobilinogen,Urine < 2.0 mg/dL (<2.0)
[2021-10-08 17:15] VITALS: BP 107/64
== END 2021-10-08 17:16 | disposition home or self-care (01) ==
LOC: ED 11:59
DX: R10.2 Pelvic and perineal pain (principal); N39.0 Urinary tract infection, site not specified; J45.909 Unspecified asthma, uncomplicated
CPT/HCPCS: 36415; 81001; 84702; 87086; 99283